=== PATIENT | male | born 1975 | race Caucasian/White ===

== ENCOUNTER → 2016-10-14 | Outpatient (CLI) | payer OTHER ==
[~2016-10-14] MED LIST: LEVAQUIN PO; NAPROXEN PO; OTC PAIN RELIEVER; TUSSIONEX PENN473 ML PO
--- NOTE | ~2016-10-14 | US115 ---
[facility] A Service of [facility] RADIOLOGY TEXT RESULTS PATIENT: RAJESH LEY LOCATION: [facility] : 71 UNIT #: [id number] AGE: [address]: Ventura Allen MD SEX: M ORDER DR: [id number] [address] [address] [id number] O MR#: [id number] Acc #: [id number] NAME: RAJESH LEY : 1975 SEX: M STUDY DATE/TIME: 10/14/2016 14:32 UNIT: SG ROOM: STUDY DESCRIPTION: US Scrotum and Contents Attending Physician: Ventura Allen M.D. Referring Physician: Ventura Allen M.D. Ordering Physician: Ventura Allen M.D. Primary Care Physician: Ventura Allen M.D. MEDICAL IMAGING REPORT This report is preliminary unless electronic signature is present. EXAM Scrotal ultrasound INDICATION Testicular pain off and on for the past 2 months with swelling for the past 4 days. PROCEDURE Cox-scale and Doppler imaging scrotum and scrotal contents. COMPARISON None FINDINGS Right testicle measures 2.7 x 3.3 x 4.1 cm. No mass. Left testicle measures 2.4 x 3.6 x 4.4 cm. No mass. There is a 7.0 mm left epididymal cyst. There is a 2.0 mm left epididymal cyst and there is a 6.0 mm structure in the left epididymis that is hypoechoic but not clearly a cyst. Both testicles show normal flow. IMPRESSION 1. No testicular mass. Testicles show normal flow. 2. Left epididymal cysts. 3. 6.0 mm hypoechoic structure in the left epididymis is indeterminate but probably represents a mildly complicated epididymal cyst. Consider followup of this structure in approximately 6 months. Dictated by... Jamison Benitez M.D. THIS IS AN ELECTRONICALLY VERIFIED REPORT Jamison Benitez M.D. at 10/18/2016 8:21 AM [facility] A Service of [facility] RADIOLOGY TEXT RESULTS PATIENT: RAJESH LEY LOCATION: [facility] #: [id number] : [birth year] UNIT #: [id number] AGE: [address]: Ventura Allen MD SEX: M ORDER DR: Luisana TD: 10/15/2016 09:41 JOB #: [id number] MEDICAL IMAGING REPORT Page 1 of 1
== END | disposition home or self-care (01) ==
LOC: SGUS 14:11
DX: N50.819 Testicular pain, unspecified (principal); N50.3 Cyst of epididymis
CPT/HCPCS: 76870; 93976